=== PATIENT | female | born 1950 | race Hispanic/Latino ===

== ENCOUNTER 2017-07-20 08:11 | Inpatient (IN) | payer MEDICARE ==
[2017-07-20] MEDS ORDERED: BABY ASPIRIN ONE (08:16)
[2017-07-20] MEDS ORDERED: NACL 0.9% 1000 ML 1,000 ML ONE ×3 (08:17→14:44)
[2017-07-20] MEDS ORDERED: HEPARIN 10,000 UNITS/10 ML ONE ×2 (08:17→08:22)
[2017-07-20] MEDS ORDERED: HEPARIN/NS 5000 UNIT/500ML(CATH LAB) 1,000 ML IR ONE (08:22)
[2017-07-20] MEDS ORDERED: CALAN ONE ×2 (08:22→08:38)
[2017-07-20] MEDS ORDERED: XYLOCAINE 2% INFILTRATI ONE (08:23)
[2017-07-20] MEDS ORDERED: NITROGLYCERIN SYRINGE 0 ML ONE (08:23)
[2017-07-20] MEDS ORDERED: NACL 0.9% 0 ML ONE (08:24)
--- NOTE | 2017-07-20 08:24 | Emergency Department Report ---
ED Chest Pain HPI - General Chief Complaint: Chest Pain Stated Complaint: CHEST PAIN Time Seen by Provider: 07/20/17 08:19 - History of Present Illness Initial Comments: 67-year-old female with a history hypertension here with complaint of chest pain. Patient states she woke up with crushing chest pain rating to the jaw and down left arm. She called 911. EMS arrived and performed a EKG which showed a ST elevation in her inferior leads. She was given some nitroglycerin by EMS with significant drop in her blood pressure. MD Complaint: chest pain Onset: during rest Pain Location: substernal Pain Radiation: LUE, jaw/teeth Severity: severe Quality: tightness Improves With: nitroglycerin Worsens With: nothing re: nausea. denies: vomting, diaphoresis Other Symptoms: denies: cough, fever - Related Data Home Medications Medication Instructions Recorded Confirmed Last Taken Aspirin EC [Aspirin Enteric Coated 81 mg PO DAILY 07/20/17 07/20/17 07/19/17 TAB] AtorvaSTATin [Lipitor] 80 mg PO QHS 07/20/17 07/20/17 07/19/17 Bisoprolol/Hctz [Ziac 2.5-6.25] 1 tab PO DAILY 07/20/17 07/20/17 07/19/17 Losartan [Cozaar] 100 mg PO DAILY 07/20/17 07/20/17 07/19/17 100mg Nifedipine ER 1 tab PO DAILY 07/20/17 07/20/17 07/19/17 Pantoprazole [Protonix TAB] 40 mg PO DAILY 07/20/17 07/20/17 07/19/17 Allergies Allergy/AdvReac Type Severity Reaction Status Date / Time codeine AdvReac Nausea Verified 07/20/17 08:31 Heart Score - HEART Score History: Highly suspicious EKG: Significant ST-depression Age: > 65 Risk factors: 1-2 risk factors Troponin: < normal limit HEART Score: 7 - Critical Actions Critical Actions: 0-3 pts:0.9-1.7%risk of adverse cardiac event.Candidate for discharge ED Review of Systems ROS: Stated complaint: CHEST PAIN Other details as noted in HPI Comment: All other systems reviewed and negative Constitutional: denies: chills, fever Eyes: denies: eye pain, eye discharge, vision change ENT: denies: ear pain, throat pain Respiratory: shortness of breath. denies: cough, wheezing Cardiovascular: chest pain. denies: palpitations Endocrine: no symptoms reported Gastrointestinal: nausea. denies: abdominal pain, diarrhea Genitourinary: denies: urgency, dysuria, discharge Musculoskeletal: denies: back pain, joint swelling, arthralgia Skin: denies: rash, lesions Neurological: denies: headache, weakness, paresthesias Psychiatric: denies: anxiety, depression Hematological/Lymphatic: denies: easy bleeding, easy bruising ED Past Medical Hx - Past Medical History Hx Hypertension: Yes - Medications Home Medications: Home Medications Medication Instructions Recorded Confirmed Last Taken Type Aspirin EC [Aspirin Enteric Coated 81 mg PO DAILY 07/20/17 07/20/17 07/19/17 History TAB] AtorvaSTATin [Lipitor] 80 mg PO QHS 07/20/17 07/20/17 07/19/17 History Bisoprolol/Hctz [Ziac 2.5-6.25] 1 tab PO DAILY 07/20/17 07/20/17 07/19/17 History Losartan [Cozaar] 100 mg PO DAILY 07/20/17 07/20/17 07/19/17 History 100mg Nifedipine ER 1 tab PO DAILY 07/20/17 07/20/17 07/19/17 History Pantoprazole [Protonix TAB] 40 mg PO DAILY 07/20/17 07/20/17 07/19/17 History ED Physical Exam - General General appearance: alert, in no apparent distress - Head Head exam: Present: atraumatic, normocephalic - Eye Eye exam: Present: normal appearance. Absent: scleral icterus, conjunctival injection - ENT ENT exam: Present: mucous membranes moist - Neck Neck exam: Present: normal inspection - Respiratory Respiratory exam: Present: normal lung sounds bilaterally. Absent: respiratory distress, wheezes - Cardiovascular Cardiovascular Exam: Present: regular rate, normal rhythm, normal heart sounds. Absent: systolic murmur, diastolic murmur, rubs, gallop - GI/Abdominal GI/Abdominal exam: Present: soft, normal bowel sounds. Absent: distended, tenderness - Extremities Exam Extremities exam: Present: normal inspection - Back Exam Back exam: Present: normal inspection - Neurological Exam Neurological exam: Present: alert, oriented X3 - Psychiatric Psychiatric exam: Present: normal affect, normal mood - Skin Skin exam: Present: warm, dry, intact, normal color. Absent: rash ED Course Vital Signs 07/20/17 07/20/17 08:15 08:28 Temperature 98.0 F Pulse Rate 52 L 52 L Respiratory 16 16 Rate Blood Pressure 141/70 Blood Pressure 141/70 [Left] O2 Sat by Pulse 99 96 Oximetry ED Medical Decision Making - Lab Data Result diagrams: 07/20/17 08:09 07/20/17 08:09 Laboratory Results - last 24 hr 07/20/17 07/20/17 07/20/17 08:09 08:09 08:09 WBC 8.1 RBC 4.16 Hgb 12.9 Hct 38.5 MCV 92 MCH 31 MCHC 34 RDW 13.0 L Plt Count 179 Lymph % (Auto) 24.7 Colbert % (Auto) 9.5 H Eos % (Auto) 2.6 Baso % (Auto) 0.5 Lymph # 2.0 Colbert # 0.8 Eos # 0.2 Baso # 0.0 Seg Neutrophils % 62.7 Seg Neutrophils # 5.1 PT INR APTT Sodium 144 Potassium 3.5 L Chloride 106.0 Carbon Dioxide 26 Anion Gap 16 BUN 19 H Creatinine 0.5 L Estimated GFR > 60 BUN/Creatinine Ratio 38.00 Glucose 108 H Calcium 9.1 Total Bilirubin 0.30 AST 27 ALT 31 Alkaline Phosphatase 99 Troponin T < 0.010 Total Protein 6.3 Albumin 3.7 L Albumin/Globulin Ratio 1.4 Blood Type O POSITIVE Antibody Screen Negative 07/20/17 08:09 WBC RBC Hgb Hct MCV MCH MCHC RDW Plt Count Lymph % (Auto) Colbert % (Auto) Eos % (Auto) Baso % (Auto) Lymph # Colbert # Eos # Baso # Seg Neutrophils % Seg Neutrophils # PT 12.4 INR 0.88 APTT 33.1 Sodium Potassium Chloride Carbon Dioxide Anion Gap BUN Creatinine Estimated GFR BUN/Creatinine Ratio Glucose Calcium Total Bilirubin AST ALT Alkaline Phosphatase Troponin T Total Protein Albumin Albumin/Globulin Ratio Blood Type Antibody Screen - EKG Data -: EKG Interpreted by Me - EKG Data 07/20/17 08:23 Initial EMS EKG shows normal sinus rhythm rate of 55 normal axis normal intervals she has ST elevation in 3 and aVF with T wave inversions in 1 and aVL Her pain at this time was 10 out of 10 Initial EKG in the ED shows normal sinus rhythm rate of [address] elevations have resolved somewhat in leads 3 and aVF she still has T-wave inversions in 1 and aVL. Her pain at this time is 1 out of 10 - Medical Decision Making 59-year-old female here with complaint of chest pain. EKG shows STEMI on initial EMS evaluation. She received some nitroglycerin with improvement in her pain however she also had significant drop in blood pressure. Given this is likely an inferior IA plan to hold nitroglycerin. Discussed with Dr. Moreau at 8:14 AM Plan to send patient to skilled laborer. Critical care attestation.: If time is entered above; I have spent that time in minutes in the direct care of this critically ill patient, excluding procedure time. ED Disposition Clinical Impression: STEMI (ST elevation myocardial infarction) Disposition: DC-[id number] OP ADMIT IP TO THIS HOSP Is pt being admited?: Yes Does the pt Need Aspirin: Yes Condition: Critical
[2017-07-20] MEDS ORDERED: ANGIOMAX IV ONE (08:25)
[2017-07-20] MEDS ORDERED: SUBLIMAZE ONE (08:25)
[2017-07-20] MEDS ORDERED: VERSED ONE (08:25)
[2017-07-20] MEDS ORDERED: BABY ASPIRIN PO ONE (08:33)
[2017-07-20] MEDS ORDERED: HEPARIN 10,000 UNITS/10 ML IV ONE (08:35)
[2017-07-20] MEDS ORDERED: TRIDIL DRIP 50MG/250ML 50 MG/250 ML BOTTLE ONE (08:41)
[2017-07-20 08:56] LABS: Basophils % (Auto) 0.5 % (0.0-1.8); Eosinophils % (Auto) 2.6 % (0.0-4.3); Hematocrit 38.5 % (30.3-42.9); Hemoglobin 12.9 gm/dl (10.1-14.3); Mean Corpuscular HGB Conc 34 % (30-34); Mean Corpuscular Hemoglobin 31 pg (28-32); Mean Corpuscular Volume 92 fl (79-97); Platelet Count 179 K/mm3 (140-440); Red Blood Count 4.16 M/mm3 (3.65-5.03); White Blood Count 8.1 K/mm3 (4.5-11.0)
[2017-07-20 09:00] LABS: INR 0.88 (0.87-1.13)
[2017-07-20] MEDS ORDERED: HEPARIN/ 0.45% NACL-25,000 UNIT/500 ML 25,000 UNIT/500 ML BAG IV SCH (09:00)
[2017-07-20 09:02] LABS: Partial Thromboplastin Time 33.1 Sec. (24.2-36.6)
[2017-07-20 09:21] LABS: Anion Gap 16 mmol/L; Blood Urea Nitrogen 19 mg/dL (7-17); Calcium 9.1 mg/dL (8.4-10.2); Carbon Dioxide 26 mmol/L (22-30); Glucose 108 mg/dL (65-100); Potassium 3.5 mmol/L (3.6-5.0); Sodium 144 mmol/L (137-145); Total Protein 6.3 g/dL (6.3-8.2)
[2017-07-20] MEDS ORDERED: DULCOLAX PR PRN (09:26)
[2017-07-20] MEDS ORDERED: ZOFRAN IV PRN (09:26)
[2017-07-20] MEDS ORDERED: TYLENOL PO PRN (09:26)
[2017-07-20] MEDS ORDERED: MILK OF MAGNESIA PO PRN (09:26)
[2017-07-20] MEDS ORDERED: NITROSTAT SL PRN (09:32)
--- NOTE | 2017-07-20 09:37 | Event Note ---
Date: 07/20/17 Pt is a 67-year-old female with a history hypertension and DM. She presented with c/o chest pain. Patient states she woke up with crushing chest pain rating to the jaw and down left arm. She called 911. EMS arrived and performed a EKG which showed a ST elevation in her inferior leads. Upon ED arrival, repeat EKG also showed ST elevations in inferior leads. Code STEMI was activated and pt was taken to cleaner laboratory equipment emergently for coronary angiogram. Her coronaries were found to be patent, EF was found to be reduced. Coronary vasospasm is suspected. She will be admitted to telemetry and continued with medical management. Obtain echo. Full cardiology H&P dictated. Martha DUKE NP / DR. JIMÉNEZ
[2017-07-20 09:53] LABS: Alanine Aminotransferase 31 units/L (7-56); Albumin 3.7 g/dL (3.9-5); Albumin/Globulin Ratio 1.4 %; Alkaline Phosphatase 99 units/L (35-129)
--- NOTE | 2017-07-20 09:59 | History and Physical Report ---
HISTORY OF PRESENT ILLNESS: A 67-year-old white female from [place], [place] is here in a hotel. This morning she woke up and started taking a shower, she started having severe anterior chest pain, which is not getting better. It is very severe. She never had this kind of pain. She took aspirin without much relief. After that when the pain is persistent, she called the paramedics and the paramedics gave her a nitroglycerin and the pain got better. She was evaluated in the Emergency Room by Dr. Shepard and because of the significant history and EKG showing very mild ST elevations of 1 mm or less in the inferior leads, a STEMI protocol was followed. The patient's chest pain improved as mentioned above after getting a sublingual nitroglycerin by the paramedics. EKG done in the Emergency Room showed sinus rhythm at rate of 51 beats per minute. Minor ST elevations in leads II, III, aVF noted. She is not having not much chest pain when she was brought to the catheterization laboratory. PAST MEDICAL HISTORY: The patient's past medical history is significant for longstanding essential hypertension and hyperlipidemia. MEDICATIONS: Namely nifedipine and losartan and bisoprolol, the dose of which she is not aware. PAST SURGICAL HISTORY: Includes a hysterectomy and appendectomy and multiple breast biopsies. ALLERGIES: None known. SOCIAL HISTORY: Does not smoke. 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 REVIEW OF SYSTEMS: No previous cardiac history of myocardial infarction or congestive heart failure or cardiac arrhythmia. As mentioned above, she has hypertension and hyperlipidemia. No history of diabetes mellitus. Denied any history of peptic ulcer disease. No history of strokes or seizures. No history of DVT or PE. No fever, no coughing. She was doing well up to this morning. She says she could not sleep well last night and she is under quite a bit of stress. No nausea or vomiting. 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 PHYSICAL EXAMINATION: GENERAL: Showed the patient to be comfortable, in no acute distress, well developed, well nourished. HEENT: Conjunctivae pink. Sclerae anicteric. NECK: Supple, no JVD. HEART: Regular, probably S4, no S3, no significant murmurs. LUNGS: Clear. ABDOMEN: Benign. EXTREMITIES: Without edema. NEUROLOGIC: Alert, oriented x 3. FINAL IMPRESSION: 1. Acute onset of chest pain, which is prolonged, consistent with ischemic pain. EKG showing minimal changes of injury in inferior leads. Because of this, the patient was brought to the catheterization as a part of the STEMI protocol and underwent cardiac catheterization using right radial artery, which showed normal coronary anatomy with RCA being dominant artery. However, left ventriculogram showed very mild hypokinesis of the apex and distal part of the inferior wall. It was felt that the patient may have coronary spasm causing her symptoms. Plan at this time is to continue aspirin and Plavix and continue with the medication she was taking at home, namely bisoprolol, nifedipine and losartan. We will add a statin. 2. History of hypertension. 3. History of hyperlipidemia. 4. History of appendectomy, hysterectomy and multiple breast biopsies. At this time, it was felt that the patient has significant coronary spasm which improved with sublingual nitro causing her symptoms and probably mild LV dysfunction noted on the left ventriculogram in addition to elevated end diastolic pressures in the range of 30-35 mm Hg. The patient will be monitored overnight. We will get an echocardiogram. I explained the diagnosis to the patient. JOB# [id number] LINDEN/TANA ARGUELLO
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
[2017-07-20] MEDS ORDERED: PLAVIX ONE (13:41)
[2017-07-20] MEDS: PLAVIX PO SCH (13:45)
[2017-07-20] MEDS: PROCARDIA XL PO SCH (14:55)
[2017-07-20] MEDS: ASPIRIN PO SCH (14:55)
[2017-07-20] MEDS: COZAAR PO SCH (14:56)
[2017-07-20] MEDS: ZIAC 5-6.25 PO SCH (14:56)
[2017-07-20] MEDS ORDERED: NACL 0.9% 1000 ML 1,000 ML IV SCH (15:00)
[2017-07-20 16:34] LABS: Creatine Kinase MB 24.7 ng/mL (0.0-4.0)
[2017-07-21 05:33] VITALS: BP 132/60
[2017-07-21 05:42] LABS: Basophils % (Auto) 0.7 % (0.0-1.8); Hematocrit 38.4 % (30.3-42.9); Hemoglobin 12.9 gm/dl (10.1-14.3); Mean Corpuscular HGB Conc 34 % (30-34); Mean Corpuscular Hemoglobin 31 pg (28-32); Mean Corpuscular Volume 94 fl (79-97); Platelet Count 166 K/mm3 (140-440); Red Blood Count 4.09 M/mm3 (3.65-5.03); Red Cell Distribution Width 13.3 % (13.2-15.2)
[2017-07-21 06:00] LABS: Creatine Kinase MB 16.7 ng/mL (0.0-4.0)
[2017-07-21 06:02] LABS: Anion Gap 16 mmol/L; Blood Urea Nitrogen 9 mg/dL (7-17); Carbon Dioxide 27 mmol/L (22-30); Chloride 106.2 mmol/L (98-107); Creatine Kinase 234 units/L (30-135); Glucose 89 mg/dL (65-100); Potassium 4.1 mmol/L (3.6-5.0); Sodium 145 mmol/L (137-145)
--- NOTE | 2017-07-21 08:49 | Progress Note ---
Assessment and Plan 67-year-old female with a past medical history of hypertension and hyperlipidemia who presented to the emergency department with ST elevations in the inferior leads. The patient went to the lab rn emergently and there was no evidence of significant disease. 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 [facility] Subjective Date of service: 07/21/17 Principal diagnosis: coronary vasospasm Interval history: Patient is sitting up in bed without complaints Objective Vital Signs Temp Pulse Pulse Resp BP BP Pulse Ox 07/21/17 05:32 98.1 F 57 L 20 132/60 96 07/21/17 03:00 57 L 07/20/17 23:57 97.6 F 61 20 142/70 94 07/20/17 22:00 62 18 96 07/20/17 20:34 97.9 F 62 18 173/71 95 07/20/17 19:56 59 L 07/20/17 16:46 97.6 F 52 L 18 142/67 97 07/20/17 14:56 56 L 126/66 07/20/17 14:30 56 L 16 126/66 96 07/20/17 14:00 53 L 20 147/60 96 07/20/17 13:31 53 L 20 149/69 98 07/20/17 12:30 56 L 16 146/69 97 07/20/17 12:00 55 L 14 142/70 97 07/20/17 11:30 53 L 20 141/90 97 07/20/17 11:00 58 L 16 146/73 96 07/20/17 10:30 53 L 14 138/67 96 07/20/17 10:15 49 L 14 126/65 96 07/20/17 10:00 48 L 10 L 135/65 95 07/20/17 09:45 50 L 12 141/67 93 07/20/17 09:30 97.7 F 49 L 14 131/65 95 - Physical Examination General: Appears Well, No Apparent Distress HEENT: Positive: PERRL Neck: Positive: neck supple, trachea midline Cardiac: Positive: Reg Rate and Rhythm Lungs: Positive: Normal Exam, clear to auscultation, Normal Breath Sounds Neuro: Positive: Grossly Intact Abdomen: Positive: Unremarkable, Soft, Active Bowel Sounds Skin: Negative: Rash Incision: Cardiac Cath Site (no hematoma) Gait: Normal Gait Extremities: Present: normal, warm. Absent: edema - Labs and Meds Cardiac Enzymes 07/20/17 07/21/17 Range/Units 15:08 04:48 CK-MB (CK-2) 24.7 H 16.7 H (0.0-4.0) ng/mL Lipids 07/20/17 Range/Units 15:08 Triglycerides 108 (2-149) mg/dL Cholesterol 126 (50-199) mg/dL HDL Cholesterol 43 (40-59) mg/dL Cholesterol/HDL Ratio 2.93 % CBC 07/21/17 Range/Units 04:48 WBC 7.0 (4.5-11.0) K/mm3 RBC 4.09 (3.65-5.03) M/mm3 Hgb 12.9 (10.1-14.3) gm/dl Hct 38.4 (30.3-42.9) % Plt Count 166 (140-440) K/mm3 Lymph # 1.6 (1.2-5.4) K/mm3 Dillon # 0.6 (0.0-0.8) K/mm3 Eos # 0.3 (0.0-0.4) K/mm3 Baso # 0.0 (0.0-0.1) K/mm3 Comprehensive Metabolic Panel 07/21/17 Range/Units 04:48 Sodium 145 (137-145) mmol/L Potassium 4.1 (3.6-5.0) mmol/L Chloride 106.2 (98-107) mmol/L Carbon Dioxide 27 (22-30) mmol/L BUN 9 (7-17) mg/dL Creatinine 0.5 L (0.7-1.2) mg/dL Glucose 89 (65-100) mg/dL Calcium 9.0 (8.4-10.2) mg/dL - Imaging and Cardiology Echo: report reviewed (normal left ventricular function) - Telemetry EKG Rhythm: Sinus Rhythm
--- NOTE | 2017-07-21 10:23 | Discharge Summary ---
Providers - Providers Date of Admission: 07/20/17 09:26 Date of discharge: 07/21/17 Attending physician: EMILIANO JIMÉNEZ Primary care physician: RAIL ENGINEER Hospitalization Condition: Stable Pertinent studies: LHC and echo Procedures: LHC and echo Hospital course: 67-year-old female with a past medical history of hypertension and hyperlipidemia who presented to the emergency department with ST elevations in the inferior leads. The patient went to the labor and delivery nurse emergently and there was no evidence of significant disease. Coronary vasospasm suspected. Pt underwent echocardiogram s/p [facility] which revealed normal EF. Pt remained clinically and hemodynamically stable throughout hospitalization and is cleared for discharge home today. Continue Procardia. Discharge home with sublingual nitroglycerin. 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 Disposition: TO HOME OR SELFCARE - Discharge Diagnoses (1) STEMI (ST elevation myocardial infarction) Status: Resolved Qualifiers: Involved coronary artery: I (2) Coronary vasospasm Status: Acute (3) Hypertension Status: Chronic Qualifiers: Hypertension type: H (4) Hyperlipidemia Status: Chronic Qualifiers: Hyperlipidemia type: H Core Measure Documentation - Palliative Care Palliative Care/ Comfort Measures: Not Applicable - Core Measures Any of the following diagnoses?: acute OH - Acute OH Discharge Requirements Aspirin at discharge: Yes JULIA/ARB for LVSD if EF <40%: Not Applicable Beta dolores at discharge: Yes Statin for LDL = or >100 mg/dl on DC: Yes Exam - Constitutional Vitals: Temp Pulse Resp BP Pulse Ox 98.1 F 57 L 20 132/60 96 07/21/17 05:32 07/21/17 05:32 07/21/17 05:32 07/21/17 05:32 07/21/17 05:32 - EENT Eyes: Present: PERRL, EOM intact ENT: hearing intact, clear oral mucosa, dentition normal - Neck Neck: Present: supple, normal ROM - Respiratory Respiratory effort: normal - Cardiovascular Rhythm: regular Heart Sounds: Present: S1 & S2 - Extremities Extremities: no ischemia, pulses intact, pulses symmetrical - Abdominal General gastrointestinal: Present: soft, non-tender - Integumentary Integumentary: Present: clear, warm, dry - Musculoskeletal Musculoskeletal: strength equal bilaterally Plan Activity: advance as tolerated Diet: low fat, low cholesterol, low salt Wound: open to air, keep clean and dry, per your surgeon's advice Follow up with: PRIMARY CARE, [Primary Care Provider] - 7 Days Prescriptions: AtorvaSTATin [Lipitor] 40 mg PO QHS #30 tablet Clopidogrel [Plavix] 75 mg PO QDAY #30 tablet NIFEdipine XL [Procardia Xl] 60 mg PO QDAY #60 tablet Nitroglycerin [Nitrostat] 0.4 mg SL .Q5MIN PRN #30 tablet PRN Reason: Chest Pain
[2017-07-21] MEDS: COZAAR PO SCH (10:32)
[2017-07-21] MEDS: PLAVIX PO SCH (10:32)
[2017-07-21] MEDS: ASPIRIN PO SCH (10:33)
[2017-07-21] MEDS: PROCARDIA XL PO SCH (10:34)
[2017-07-21] MEDS: ZIAC 5-6.25 PO SCH (10:36)
== END 2017-07-21 11:48 | disposition home or self-care (01) | DRG 282 ==
LOC: ED 08:11 → CATH 08:51 → 4A 09:26
PROVIDERS: ADMIT Internal Medicine; ATTEND Internal Medicine
PROC: 4A023N7 Measurement of Cardiac Sampling and Pressure, Left Heart, Percutaneous Approach (ICD-10-PCS; principal; 2017-07-20)
PROC: B2151ZZ Fluoroscopy of Left Heart using Low Osmolar Contrast (ICD-10-PCS; 2017-07-20)
PROC: B2111ZZ Fluoroscopy of Multiple Coronary Arteries using Low Osmolar Contrast (ICD-10-PCS; 2017-07-20)
DX: I21.3 ST elevation (STEMI) myocardial infarction of unspecified site (principal); Z88.6 Allergy status to analgesic agent; I10 Essential (primary) hypertension; Z79.82 Long term (current) use of aspirin; I20.1 Angina pectoris with documented spasm; E78.5 Hyperlipidemia, unspecified; Z90.49 Acquired absence of other specified parts of digestive tract
CPT/HCPCS: 36415; 80048; 80053; 80061; 82550; 82553; 84484; 85014; 85018; 85025; 85610; 85730; 86850; 86900; 86901; 93005; 93010; 93306; 93458; 99285; A9270-GY; C1887; C1894; J0583; J1644; J2250; J2405; J3010; J7030; Q9967